=== PATIENT | female | born 1955 | race Caucasian/White ===

== ENCOUNTER 2020-01-17 09:16 | Emergency (ER) | payer OTHER, MEDICARE ==
[~2020-01-17] VITALS: Ht 177.8 cm; Wt 91.3 kg
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
[2020-01-17] MEDS ORDERED: FOLI1TAB24 PO (10:15)
[2020-01-17] MEDS ORDERED: METH2.5T (10:15)
[2020-01-17] MEDS ORDERED: ESTR1TAB24 (10:15)
[2020-01-17] MEDS ORDERED: TRAM-42 PO (10:48)
[2020-01-17 11:02] VITALS: BP 168/80
== END 2020-01-17 11:02 | disposition home or self-care (01) ==
LOC: ER FS 09:17
DX: S59.902A Unspecified injury of left elbow, initial encounter (principal); S80.11XA Contusion of right lower leg, initial encounter; Z88.0 Allergy status to penicillin; Z88.2 Allergy status to sulfonamides; Z88.5 Allergy status to narcotic agent; V49.40XA Driver injured in collision with unspecified motor vehicles in traffic accident, initial encounter
CPT/HCPCS: 73080; 73590